=== PATIENT | female | born 1930 | race Caucasian/White ===

== ENCOUNTER 2018-05-07 16:08 | Inpatient (IN) | payer MEDICARE ==
[~2018-05-07] VITALS: Ht 170.2 cm; Wt 54.0 kg
--- NOTE | 2018-05-07 16:09 | NUR ---
PT BIBA BLS TO BED 6
[2018-05-07 16:12] VITALS: BP 134/89
[2018-05-07] MEDS ORDERED: NACL 0.9% 1,000 ML IV ONE (17:15)
[2018-05-07] MEDS ORDERED: KETOROLAC 30 MG/ML VIAL IVP ONE (17:15)
[2018-05-07 17:39] LABS: BASOPHILS % (AUTO) 0.3 % (0.0-2.0); EOSINOPHILS # (AUTO) 0.4 K/uL (0-0.4); EOSINOPHILS % (AUTO) 3.8 % (0.0-4.0); HEMATOCRIT 43.3 % (36-48); HEMOGLOBIN 13.8 g/dL (12.0-16.0); LYMPHOCYTES # (AUTO) 1.9 K/uL (2.5-16.5); LYMPHOCYTES % (AUTO) 17.9 % (20.5-51.1); MEAN CORPUSCULAR HEMOGLOBIN 28 pg (27-31); MEAN CORPUSCULAR HGB CONC 32 g/dL (33-37); MEAN CORPUSCULAR VOLUME 88.3 fL (80-94); MONOCYTES # (AUTO) 0.9 K/uL (0.8-1.0); MONOCYTES % (AUTO) 8.7 % (1.7-9.3); NEUTROPHILS # (AUTO) 7.2 K/uL (1.8-7.7); NEUTROPHILS % (AUTO) 69.3 % (42.2-75.2); PLATELET COUNT (AUTO) 377 K/uL (140-450); RED BLOOD CELL COUNT(AUTO) 4.91 MIL/uL (4.20-5.40); RED CELL DISTRIBUTION WIDTH 14.8 % (11.6-13.7); WHITE BLOOD COUNT (AUTO) 10.4 K/uL (4.8-10.8)
--- NOTE | 2018-05-07 17:50 | NUR ---
patient with no complaints. vss. nad. will continue to monitor.
[2018-05-07 18:03] LABS: ANION GAP 12.3 (8-16); CARBON DIOXIDE 31.4 mmol/L (21-32); CHLORIDE 100 mmol/L (98-107); CREATININE 0.9 mg/dL (0.6-1.3); GLUCOSE 112 mg/dL (74-106); POTASSIUM 3.7 mmol/L (3.5-5.1); SODIUM SERUM 140 mmol/L (136-145); UREA NITROGEN, BLOOD 25 mg/dL (7-18)
[2018-05-07 18:09] LABS: ALBUMIN 3.1 g/dL (3.4-5.0); ASPARTATE AMINOTRANSFERASE 20 U/L (15-37); TOTAL BILIRUBIN 0.5 mg/dL (0.0-1.0)
[2018-05-07] MEDS ORDERED: ONDANSETRON 4 MG ODT PO ONE (18:30)
--- NOTE | 2018-05-07 18:30 | NUR ---
Iv saline lock removed upon entering room. IV catheter intact; bleeding controlled; dressing applied. patient denies any pain at this time; pt reports nausea; no vomitting noted; er md cortez notified; new order being ordered. will follow up.
[2018-05-07 19:03] LABS: APPEARANCE,URINE CLEAR (CLEAR); BILIRUBIN,URINE NEGATIVE (NEGATIVE); BLOOD, URINE NEGATIVE (NEGATIVE); COLOR,URINE YELLOW (YELLOW); LEUKOCYTE ESTERASE ,URINE NEGATIVE (NEGATIVE); NITRITE, URINE NEGATIVE (NEGATIVE); UGLUCOSE NEGATIVE (NEGATIVE)
--- NOTE | 2018-05-07 19:15 | NUR ---
PT SITTING UP IN BED, VITALS STABLE. COMFORT MEASURES OFFERED PT TOLERARTED WELL.
--- NOTE | 2018-05-07 19:20 | NUR ---
Pt report given to Alessandra MUIR. Transfer of care at this time.
[2018-05-07] MEDS ORDERED: HYDROcodone/APAP 7.5/325 MG 1 TAB PO PRN (20:45)
[2018-05-07] MEDS ORDERED: ACETAMINOPHEN 325 MG TAB PO PRN (20:45)
[2018-05-07] MEDS ORDERED: DOCUSATE SODIUM 100 MG GELCAP PO PRN (20:45)
--- NOTE | 2018-05-07 21:11 | NUR ---
X-Ray at bedside.
--- NOTE | 2018-05-07 21:20 | NUR ---
Patient will be admitted to care of DR. VIEYRA. Admited to MED SURG. Will go to room 121A. Belongings list completed. Report to MOY MUIR. VSS
--- NOTE | 2018-05-07 21:20 | NUR ---
Pt report given to MOY MUIR. Transfer of care at this time.VSS
[2018-05-07 21:22] LABS: CHOL/HDL RATIO 4.8 (1-4.5); FREE T4 (FREE THYROXINE) 1.15 ng/dL (0.76-1.46); MAGNESIUM 1.5 mg/dL (1.8-2.4); THYROID STIMULATING HORMONE 1.03 uIU/mL (0.34-3.74)
[2018-05-07 21:25] VITALS: BP 142/61
--- NOTE | 2018-05-07 21:25 | NUR ---
ADMITTED A 87F FROM ER.CAME BY BRENNA AYALA TO INTRACTABLE BACK PAIN S/P FALL AT HOME 11 DAYS AGO . AAO X4. PT IS MED SURG. BEDREST. WITH LACERATION ON THE RIGHT SHEEN, CONTUSION ON LT FOOT . HAS HL ON THE RT HAND #[id number]. PAIN AT THIS TIME SHE SAID IS TOLERABLE. PLAN OF CARE DISCUSSED AND VERBALIZED UNDERSTANDING. ORIENTED TO HOSPITAL ROUTINES. BED ON LOWEST POSITION. FREQUENT ROUNDS NEEDED. SIDE RAILS UP X2. CALL LIGHT PLACED WITHIN EASY REACH. BED ALARM ON . INSTRUCTED TO CALL IF NEED ASSIST ANCE. VERBALIZED UNDERSTANDING. WILL FOLLOW UP ADMIT ORDERS.
--- NOTE | 2018-05-07 22:40 | NUR ---
DR. NEGRO, RESIDENT CAME AND CHECKED ON PT. HE SAID TO DO CULTURE ON THE RT SHEEN LACERATION.
[2018-05-07] MEDS ORDERED: KETOROLAC 15 MG/ML VIAL IM PRN (23:50)
--- NOTE | 2018-05-07 23:55 | NUR ---
PT. FOR CT HEAD W/O CONTRAST. RN ENDOSCOPY CALLED EARLIER. PT SAID SHE DOESN'T WANT IT DONE. SHE TALKED TO DR. NEGRO AND TEST TO BE DONE TOMORROW.
--- NOTE | 2018-05-08 00:05 | NUR ---
PT WAS INSTRUCTED ABOUT NPO AFTER MN FOR PLACEMENT OF TUNNELED HD PERMACATH LANDEN. VERBALIZED UNDERSTANDING. Addendum: 05/08/18 at 0727 by Bina Harvey RN CANADE[facility] ABOVE NOTES
[2018-05-08] MEDS ORDERED: DEXAMETHASONE 4 MG/ML VIAL IVP ONE (00:10)
[2018-05-08] MEDS ORDERED: MAGNESIUM OXIDE 400 MG TAB PO ONE (00:15)
[2018-05-08] MEDS ORDERED: MECLIZINE 25 MG TAB PO PRN (00:15)
[2018-05-08] MEDS: NACL 0.9% 500 ML IV SCH ×2 (00:20→12:50)
[2018-05-08] MEDS: ACETAMINOPHEN EXTRA STRENGTH 500 MG TAB PO PRN ×3 (00:33→23:41)
[2018-05-08 00:58] VITALS: BP 139/56
--- NOTE | 2018-05-08 01:30 | NUR ---
DR. NEGRO SAID OK TO START ANCEF AT 0500 THIS AM.
--- NOTE | 2018-05-08 02:00 | NUR ---
PT IS ASLEEP. NO S/S OF ANY DISCOMFORT NOTED.WILL CONTINUE TO MONITOR.
[2018-05-08] MEDS ORDERED: ceFAZolin 1,000 MG VIAL ONE (04:14)
--- NOTE | 2018-05-08 04:33 | NUR ---
ANCEF IVPB STARTED . WILL MONITOR FOR ANY REACTION.
--- NOTE | 2018-05-08 06:30 | NUR ---
HEATING PAD APPLIED TO BACK ORDERED FOR PAIN .
[2018-05-08 06:50] LABS: BASOPHILS % (AUTO) 0.2 % (0.0-2.0); EOSINOPHILS % (AUTO) 0.4 % (0.0-4.0); HEMATOCRIT 40.6 % (36-48); HEMOGLOBIN 12.9 g/dL (12.0-16.0); LYMPHOCYTES % (AUTO) 9.4 % (20.5-51.1); MEAN CORPUSCULAR HEMOGLOBIN 28 pg (27-31); MEAN CORPUSCULAR HGB CONC 32 g/dL (33-37); MEAN CORPUSCULAR VOLUME 88.8 fL (80-94); MONOCYTES # (AUTO) 0.1 K/uL (0.8-1.0); MONOCYTES % (AUTO) 0.9 % (1.7-9.3); NEUTROPHILS # (AUTO) 9.3 K/uL (1.8-7.7); NEUTROPHILS % (AUTO) 89.1 % (42.2-75.2); PLATELET COUNT (AUTO) 360 K/uL (140-450); RED BLOOD CELL COUNT(AUTO) 4.57 MIL/uL (4.20-5.40); RED CELL DISTRIBUTION WIDTH 14.5 % (11.6-13.7); WHITE BLOOD COUNT (AUTO) 10.5 K/uL (4.8-10.8)
[2018-05-08 07:17] LABS: MAGNESIUM 2.1 mg/dL (1.8-2.4); PHOSPHORUS 3.3 mg/dL (2.5-4.9)
--- NOTE | 2018-05-08 07:20 | NUR ---
ENDORSED PT IN STABLE CONDITION TO AM NURSE
--- NOTE | 2018-05-08 07:21 | NUR ---
RECEIVED REPORT FROM NIGHT COORDINATOR NURSE. PT IN STABLE CONDITION. RESPIRATIONS EVEN AND UNLABORED. IV INTACT AND PATENT. REVIEWED PLAN OF CARE WITH PT, PT VERBALIZED UNDERSTANDING OF PLAN OF CARE. SAFETY MEASURES IN PLACE. CALL LIGHT AT BEDSIDE. WILL CONTINUE TO MONITOR.
[2018-05-08 07:23] LABS: ANION GAP 17.2 (8-16); CARBON DIOXIDE 26.1 mmol/L (21-32); CHLORIDE 103 mmol/L (98-107); GLUCOSE 157 mg/dL (74-106); POTASSIUM 4.3 mmol/L (3.5-5.1); SODIUM SERUM 142 mmol/L (136-145); UREA NITROGEN, BLOOD 29 mg/dL (7-18)
--- NOTE | 2018-05-08 08:29 | NUR ---
PATIENT HAS BEEN SCREENED AND CATEGORIZED HIGH NUTRITION RISK. PATIENT WILL BE SEEN WITHIN 1-2 DAYS OF ADMISSION. 05/08/18-05/09/[address]
[2018-05-08] MEDS: CALCIUM CARB/VIT-D 500 MG/200 IU 1 TAB PO SCH (09:21)
[2018-05-08] MEDS: MAGNESIUM OXIDE 400 MG TAB PO SCH (09:21)
[2018-05-08] MEDS: SODIUM PHOS / POTASSIUM PHOS 1 PKT PDR PO SCH ×3 (09:22→17:08)
--- NOTE | 2018-05-08 11:30 | NUR ---
WOUND CARE EVALUATION NOTE: REASON FOR EVALUATION: RLE WOUND SKIN ASSESSMENT DONE WITH THIS 87Y/O FEMALE PT ADMITTED TO [facility] WITH INITIAL DX SYNCOPE AND S/P FALL. SKIN IS WARM AND DRY, BLE NO HAIR GROWTH, +1 EDEMA TO RIGHT LOWER LEG. BILATERAL DORSAL PEDAL PULSES PRESENT AND NORMAL. CAPILLARY REFILLED < 2 SEC. X 10 TOES. PLAN OF CARE DISCUSSED WITH PRIMARY RN AND PT. PT. VERBALIZING UNDERSTANDING. INTEGUMENTARY: -LLE DRY SKIN WITH DARK PIGMENTATION, MEDIAL MOON-ANKLE DRY SCABS -RLE LACERATION WITH ERYTHEMA AND +1 EDEMA, OPEN WOUND WITH PARTIAL THICKNESS SKIN LOSS 0.5X5X O.1CM WOUND BED IS MOIST AND RED, NO ODOR, OPEN WOUND AREA CONNECT TO SKIN TEAR WITH SKIN FLAP TO WOUND BED, 5X6 CM MOON-WOUND SKIN INTACT RECOMMENDATIONS: -CLEANSE RLE OPEN WOUNDS WITH NS. PAT DRY , APPLY VERSALTEL DRESSING (TO SKIN FLAPPED AREA)AND SILVASORB GEL(TO OPEN WOUND AREA) AND COVER WITH DRY DRESSING CHANGE QD AND PRN IF SOILING, PLEASE DO NOT REMOVE VERSATEL DRESSING. -OFFLOAD BILATERAL HEELS BY PLACING PILLOWS UNDER CALVES UNLESS OTHERWISE CONTRAINDICATED -PRESSURE REDISTRIBUTION SURFACE THERAPY -TURN AND REPOSITION Q2H, OFFLOAD SACRALCOCCYX BY TURNING RIGHT AND LEFT -CONTINUE TO FOLLOW RD RECOMMENDATIONS ALL ABOVE RECOMMENDATIONS DISCUSSED WITH PRIMARY RN AND DR. UMANZOR. WILL FOLLOW UP PT Q7-10 DAYS. PLEASE CONTACT WOUND CARE NURSE FOR ANY QUESTION AND CHANGE OF WOUND CONDITION.
--- NOTE | 2018-05-08 12:00 | NUR ---
PT REFUSED TO GO WITH RADIOLOGY FOR HEAD CT W/O CONTRAST. PT STATED THAT SHE DOES NOT WANT TO BE TRANSFERRED TO THE CT BED DUE TO BACK FX, AND SHE NEVER HIT HER HEAD WHEN SHE FELL SO SHE DOES NOT FEEL SHE NEEDS A CT.
--- NOTE | 2018-05-08 12:15 | NUR ---
05/08/18 RD INITIAL ASSESSMENT COMPLETED PLEASE REFER TO NUTRITION ASSESSMENT UNDER CARE ACTIVITY FOR ESTIMATED NUTRITIONAL NEEDS. 1. CONTINUE REGULAR DIET TOLERATED 2. RECOMMEND ENSURE VANILLA TID 3. RD TO FOLLOW-UP 3-5 DAYS, MODERATE RISK GAUTAM KILLIAN, RD
[2018-05-08] MEDS ORDERED: HYDR-3320 PO (13:16)
[2018-05-08] MEDS ORDERED: SYN.1 PO (13:16)
[2018-05-08] MEDS ORDERED: CARV6.25 PO (13:16)
[2018-05-08] MEDS: NACL 0.9% IRR 250 ML BOTTLE IR SCH (13:20)
--- NOTE | 2018-05-08 13:20 | NUR ---
WOUND CARE COMPLETED BY WOUND CARE NURSE AT 1100. SEE WOUND ASSESSMENT IN CHART.
[2018-05-08] MEDS ORDERED: CARVEDILOL 6.25 MG TAB PO SCH (13:30)
[2018-05-08] MEDS ORDERED: LEVOTHYROXINE 0.1 MG TAB PO SCH (13:30)
[2018-05-08] MEDS ORDERED: KETOROLAC 15 MG/ML VIAL IM PRN (14:45)
[2018-05-08 16:00] VITALS: BP 122/52
--- NOTE | 2018-05-08 17:00 | NUR ---
GAVE ORDERED DUE MEDICATIONS AND PRN ZOFRAN DUE TO NAUSEA, PT TOLERATED WELL. WILL CONTINUE TO MONITOR.
[2018-05-08] MEDS ORDERED: CEPHALEXIN 500 MG CAP PO SCH (18:00)
[2018-05-08] MEDS: ONDANSETRON 4 MG/2 ML VIAL IM/IVP PRN (18:02)
--- NOTE | 2018-05-08 19:30 | NUR ---
GAVE REPORT TO ELECTRICIAN SECOND NURSE FOR CONTINUITY OF CARE. PT IN STABLE CONDITION.
--- NOTE | 2018-05-08 19:31 | NUR ---
RECEIVED REPORT FROM AM SHIFT NURSE. PT IN STABLE CONDITION. RESPIRATIONS EVEN AND UNLABORED. IV INTACT AND PATENT. REVIEWED PLAN OF CARE WITH PT, PT VERBALIZED UNDERSTANDING OF PLAN OF CARE. SAFETY MEASURES IN PLACE. CALL LIGHT AT BEDSIDE. WILL CONTINUE TO MONITOR.
--- NOTE | 2018-05-08 19:48 | NUR ---
GAVE ORDERED DUE MEDICATIONS, PT TOLERATED WELL. WILL CONTINUE TO MONITOR.
[2018-05-08] MEDS: CEPHALEXIN 500 MG CAP PO SCH (20:42)
[2018-05-08] MEDS: CARVEDILOL 6.25 MG TAB PO SCH (20:42)
--- NOTE | 2018-05-08 21:00 | NUR ---
GAVE MEDS ABLE TO TOLERATE SWALLOWING ORAL PILLS. PT IN STABLE CONDITION.
[2018-05-09] VITALS: BP 115/43
--- NOTE | 2018-05-09 07:30 | NUR ---
ENDORSED BEDSIDE REPORT TO AM SHIFT NURSE. STABLE AT THIS TIME
--- NOTE | 2018-05-09 07:31 | NUR ---
Received bedside report from pm nurse Lainey. Pt awake, verbally responsive, no c/o discomfort. Call light within reach.
[2018-05-09 08:00] VITALS: BP 131/53
[2018-05-09 08:20] LABS: T4 (THYROXINE) 6.7 ug/dL (4.5-12.0)
[2018-05-09] MEDS ORDERED: NON-FORMULARY ITEM (Losartan/Hydrochlorothiazide (Losartan-Hctz 100-25 mg Tab) 1 TAB) PO SCH (09:00)
[2018-05-09] MEDS: SODIUM PHOS / POTASSIUM PHOS 1 PKT PDR PO SCH ×3 (09:07→17:30)
[2018-05-09] MEDS: CEPHALEXIN 500 MG CAP PO SCH ×2 (09:07→20:37)
[2018-05-09] MEDS: LEVOTHYROXINE 0.1 MG TAB PO SCH (09:07)
[2018-05-09] MEDS: LOSARTAN 50 MG TAB PO SCH (09:08)
[2018-05-09] MEDS: CARVEDILOL 6.25 MG TAB PO SCH ×2 (09:08→20:37)
[2018-05-09] MEDS: MAGNESIUM OXIDE 400 MG TAB PO SCH (09:08)
[2018-05-09] MEDS: CALCIUM CARB/VIT-D 500 MG/200 IU 1 TAB PO SCH (09:08)
[2018-05-09] MEDS: HYDROCHLOROTHIAZIDE 25 MG TAB PO SCH (09:09)
[2018-05-09 09:39] LABS: BARBITURATE, URINE NEG. ng/ml (NEG <=200); BENZODIAZEPINE, URINE NEG. ng/mL (NEG <=200); CANNABINOID, URINE NEG. ng/mL (NEG <=50); COCAINE, URINE NEG. ng/mL (NEG <=300); OPIATE, URINE NEG. ng/mL (NEG <=2000); PHENCYCLIDINE SCREEN,URINE NEG. ng/mL (NEG <=25)
--- NOTE | 2018-05-09 11:15 | NUR ---
Pt in high fowlers in bed, awake, verbally responsive, no c/o discomfort at this time. Pt states she only has pain when she is being moved. Offered pain med prior to ADL care. Pt refused & states she doesn't like taking too much meds. Encouraged to call for assistance as needed. Verbalized understanding. Able to return demonstrate proper use of call button. Call light within reach.
[2018-05-09] MEDS: NACL 0.9% IRR 250 ML BOTTLE IR SCH (13:00)
--- NOTE | 2018-05-09 13:00 | NUR ---
Pt voided in pad. Pericare provided. Noted perianal area redness, no open lesions. No c/o discomfort. Dr Ortiz notified.
--- NOTE | 2018-05-09 14:00 | NUR ---
Physical therapist at bedside providing treatment. Pt cooperative, no signs of distress.
[2018-05-09 16:00] VITALS: BP 114/53
--- NOTE | 2018-05-09 19:30 | NUR ---
Bedside report given to pm nurse Alanna.
--- NOTE | 2018-05-09 19:31 | NUR ---
RECD. RESTING IN BED, AWAKE, A/OX4. RESPIRATION EVEN AND UNLABORED. NO IV LINE, REFUSED TO HAVE ONE INSERTED. WITH K-PAD BEHIND BACK. WITH ABDOMINAL BINDER FOR SUPPORT. NOTED DISCOLORATION ON LEFT LOWER EXTREMITY, RIGHT PATTON WITH LACERATION DUE TO FALL, COVERED WITH VERSATEL DRESSING, DRY AND INTACT. DENIES PAIN 0/10, STATED PAIN COMES ONLY WHEN SHE MOVES. PLAN OF CARE FOR THE SHIFT DISCUSSED. VERBALIZED UNDERSTANDING.
[2018-05-09] MEDS: Z-GUARD PASTE TP SCH (20:37)
--- NOTE | 2018-05-09 21:00 | NUR ---
Patient's Plan of Care was discussed and reviewed with TREATMENT COORDINATOR: WALTER ALLEN
--- NOTE | 2018-05-09 21:00 | NUR ---
INFORMED DR. CORREIA, PATIENT WANT TO HAVE ENEMA, NO BM FOR 3 DAYS. WILL ORDER PO MEDICATION AND IF IT IS NOT EFFECTIVE WILL ORDER FLEE ENEMA.
--- NOTE | 2018-05-09 23:00 | NUR ---
SLEEPING COMFORTABLY IN BED.
[2018-05-10] VITALS: BP 120/57
[2018-05-10] MEDS ORDERED: BISACODYL 5 MG TABEC PO SCH (01:00)
--- NOTE | 2018-05-10 01:10 | NUR ---
MEDICATED WITH DULCOLAX 5 MG, 2 TABS ORDERED FOR CONSTIPATION.
--- NOTE | 2018-05-10 06:30 | NUR ---
SLEEPING COMFORTABLY IN BED. NO BM FOR THE SHIFT.
--- NOTE | 2018-05-10 07:25 | NUR ---
CONDITION REMAIN STABLE. ENDORSED TO AM NURSES TO GIVE FLEET ENEMA IF STILL NO BM AND FOR CONTINUITY OF CARE.
[2018-05-10 07:45] LABS: BASOPHILS % (AUTO) 0.3 % (0.0-2.0); EOSINOPHILS # (AUTO) 0.4 K/uL (0-0.4); HEMATOCRIT 38.3 % (36-48); HEMOGLOBIN 12.3 g/dL (12.0-16.0); LYMPHOCYTES # (AUTO) 1.9 K/uL (2.5-16.5); LYMPHOCYTES % (AUTO) 20.4 % (20.5-51.1); MEAN CORPUSCULAR HEMOGLOBIN 28 pg (27-31); MEAN CORPUSCULAR HGB CONC 32 g/dL (33-37); MEAN CORPUSCULAR VOLUME 88.2 fL (80-94); MONOCYTES % (AUTO) 10.6 % (1.7-9.3); NEUTROPHILS # (AUTO) 6.1 K/uL (1.8-7.7); NEUTROPHILS % (AUTO) 64.7 % (42.2-75.2); PLATELET COUNT (AUTO) 383 K/uL (140-450); RED BLOOD CELL COUNT(AUTO) 4.34 MIL/uL (4.20-5.40); RED CELL DISTRIBUTION WIDTH 14.3 % (11.6-13.7); WHITE BLOOD COUNT (AUTO) 9.4 K/uL (4.8-10.8)
[2018-05-10 08:00] VITALS: BP 120/70
[2018-05-10 08:31] LABS: ANION GAP 11.2 (8-16); CARBON DIOXIDE 30.8 mmol/L (21-32); CHLORIDE 104 mmol/L (98-107); CREATININE 0.7 mg/dL (0.6-1.3); GLUCOSE 105 mg/dL (74-106); SODIUM SERUM 142 mmol/L (136-145); UREA NITROGEN, BLOOD 20 mg/dL (7-18)
[2018-05-10 08:35] LABS: PHOSPHORUS 2.8 mg/dL (2.5-4.9)
[2018-05-10] MEDS: ONDANSETRON 4 MG/2 ML VIAL IM/IVP PRN (09:08)
[2018-05-10] MEDS: CALCIUM CARB/VIT-D 500 MG/200 IU 1 TAB PO SCH (09:10)
[2018-05-10] MEDS: LEVOTHYROXINE 0.1 MG TAB PO SCH (09:10)
[2018-05-10] MEDS: LOSARTAN 50 MG TAB PO SCH (09:11)
[2018-05-10] MEDS: CARVEDILOL 6.25 MG TAB PO SCH ×2 (09:11→20:51)
[2018-05-10] MEDS: MAGNESIUM OXIDE 400 MG TAB PO SCH (09:11)
[2018-05-10] MEDS: SODIUM PHOS / POTASSIUM PHOS 1 PKT PDR PO SCH ×3 (09:12→17:12)
[2018-05-10] MEDS: HYDROCHLOROTHIAZIDE 25 MG TAB PO SCH (09:12)
--- NOTE | 2018-05-10 09:15 | NUR ---
ADMINISTERED SCHEDULED MEDS. PATIENT TOLERATED WELL. WILL CONTINUE TO MONITOR.
[2018-05-10] MEDS ORDERED: ONDANSETRON 4 MG ODT SL PRN (09:20)
[2018-05-10] MEDS: CEPHALEXIN 500 MG CAP PO SCH ×2 (09:26→20:51)
[2018-05-10] MEDS: Z-GUARD PASTE TP SCH ×2 (09:29→20:52)
[2018-05-10] MEDS ORDERED: DEXAMETHASONE 4 MG TAB PO SCH (12:45)
[2018-05-10] MEDS: NACL 0.9% IRR 250 ML BOTTLE IR SCH (13:00)
--- NOTE | 2018-05-10 13:31 | NUR ---
ADMINISTERED SCHEDULED MEDS TO PATIENT. PATIENT TOLERATED WELL. WILL CONTINUE TO MONITOR.
[2018-05-10] MEDS: SODIUM PHOSPHATE 118 ML ENEM RC PRN (14:46)
--- NOTE | 2018-05-10 15:00 | NUR ---
Assisted pt from bed to chair via 2-person moderate assist. Pt c/o min pain during transfer, refused pain meds when offered. States pain is tolerable at this time. No c/o pain in sitting position. Son at bedside visiting pt. Call light placed within reach.
--- NOTE | 2018-05-10 15:40 | NUR ---
Pt states she feels like having a BM. Transferred pt from chair to bedside commode via 2-person moderate assist. Call light within reach. Fall precautions in place.
[2018-05-10 16:00] VITALS: BP 117/56
--- NOTE | 2018-05-10 16:00 | NUR ---
Pt voided min amount in bedside commode. No BM. Pt assisted back to bed via 2-person mod assist. No c/o discomfort. Call light within reach.
--- NOTE | 2018-05-10 19:28 | NUR ---
GAVE BEDSIDE REPORT TO FIELD SUPERVISOR SEED PRODUCTION NURSE. PATIENT ENDORSED IN STABLE CONDITION.
--- NOTE | 2018-05-10 19:30 | NUR ---
RECEIVED REPORT FROM DAY SHIFT NURSE. PT LYING IN BED. AAOX4. NO C/O PAIN AT THIS TIME. NO RESP DISTRESS NOTED. PT HAS DRESSING TO RIGHT PATTON, CLEAN, DRY AND INTACT. PT HAS LEFT ANKLE HEMATOMA. DISCUSSED PLAN OF CARE, PT VERBALIZED UNDERSTANDING. SAFETY PRECAUTION IN PLACE. CALL LIGHT WITHIN REACH.
--- NOTE | 2018-05-10 21:15 | NUR ---
DUE MEDS GIVEN. PT TOLERATED WELL. PT KEPT DRY AND COMFORTABLE. SAFETY PRECAUTION IN PLACE.
[2018-05-10] MEDS: ACETAMINOPHEN EXTRA STRENGTH 500 MG TAB PO PRN (23:25)
--- NOTE | 2018-05-10 23:25 | NUR ---
PT C/O BACK PAIN AND ASKED FOR TYLENOL. TYLENOL 1000 MG GIVEN. PT TOLERATED WELL.
[2018-05-11] VITALS: BP 113/56
--- NOTE | 2018-05-11 01:50 | NUR ---
PT SLEEPING. JOLYNN S/S OF PAIN OR SOB. RESP EVEN AND UNLABORED.
--- NOTE | 2018-05-11 04:30 | NUR ---
PT SLEEPING. NO S/S OF PAIN. PT KEPT WARM AND COMFORTABLE.
--- NOTE | 2018-05-11 05:35 | NUR ---
PT HAD SMALL SOFT BM X 2. PT WAS CLEANED AND CHANGED BY CNAS.
[2018-05-11] MEDS: METOCLOPRAMIDE 10 MG TAB PO SCH ×2 (06:32→12:06)
--- NOTE | 2018-05-11 07:05 | NUR ---
ENDORSED PT TO DAY SHIFT NURSE. PT IN STABLE CONDITION.
--- NOTE | 2018-05-11 07:10 | NUR ---
RECEIVED PT ROM PRICING STRATEGIST NURSE, ROSITA, PT IS AWAKE AND LYING ON THE BED WITH SIDE RAILS UP AND CALL LIGHT WITHIN REACH, PT HAS NO IV LINE IN PLACE, DENIES SOB AND PAIN. A RT PATTON SKIN TEAR WAS NOTED. NO SIGN OF DISTRESS NOTED AND WILL CONTINUE TO MONITOR PT.
[2018-05-11 08:00] VITALS: BP 129/78
[2018-05-11 08:14] LABS: BASOPHILS % (AUTO) 0.1 % (0.0-2.0); EOSINOPHILS % (AUTO) 0.1 % (0.0-4.0); HEMATOCRIT 41.2 % (36-48); HEMOGLOBIN 13.2 g/dL (12.0-16.0); LYMPHOCYTES # (AUTO) 1.6 K/uL (2.5-16.5); LYMPHOCYTES % (AUTO) 15.3 % (20.5-51.1); MEAN CORPUSCULAR HEMOGLOBIN 28 pg (27-31); MEAN CORPUSCULAR HGB CONC 32 g/dL (33-37); MEAN CORPUSCULAR VOLUME 88.1 fL (80-94); MONOCYTES # (AUTO) 0.7 K/uL (0.8-1.0); MONOCYTES % (AUTO) 7.2 % (1.7-9.3); NEUTROPHILS # (AUTO) 7.8 K/uL (1.8-7.7); NEUTROPHILS % (AUTO) 77.3 % (42.2-75.2); PLATELET COUNT (AUTO) 429 K/uL (140-450); RED BLOOD CELL COUNT(AUTO) 4.67 MIL/uL (4.20-5.40); RED CELL DISTRIBUTION WIDTH 14.6 % (11.6-13.7); WHITE BLOOD COUNT (AUTO) 10.1 K/uL (4.8-10.8)
[2018-05-11] MEDS: CEPHALEXIN 500 MG CAP PO SCH (08:37)
[2018-05-11] MEDS: MAGNESIUM OXIDE 400 MG TAB PO SCH (08:38)
[2018-05-11] MEDS: CARVEDILOL 6.25 MG TAB PO SCH (08:38)
[2018-05-11] MEDS: CALCIUM CARB/VIT-D 500 MG/200 IU 1 TAB PO SCH (08:38)
[2018-05-11] MEDS: SODIUM PHOS / POTASSIUM PHOS 1 PKT PDR PO SCH ×2 (08:38→13:14)
[2018-05-11] MEDS: HYDROCHLOROTHIAZIDE 25 MG TAB PO SCH (08:39)
[2018-05-11] MEDS: LEVOTHYROXINE 0.1 MG TAB PO SCH (08:39)
[2018-05-11] MEDS: LOSARTAN 50 MG TAB PO SCH (08:39)
[2018-05-11] MEDS: Z-GUARD PASTE TP SCH (08:43)
--- NOTE | 2018-05-11 08:51 | NUR ---
PT IS AWAKE AND SEATED ON THE BED, JUST FINISHED BREAKFAST, V/S TAKEN AND BP IS WITHIN NORMAL LIMIT, ORAL MEDICATIONS GIVEN WITH ASPIRATION PRECAUTION INITIATED, PT DENIES PAIN AND TOLERATED THE ORAL MEDICATIONS, NO SIGN OF DISTRESS NOTED AND WILL CONTINUE TO MONITOR PT.
[2018-05-11 09:03] LABS: ANION GAP 12.7 (8-16); CHLORIDE 101 mmol/L (98-107); CREATININE 0.8 mg/dL (0.6-1.3); GLUCOSE 121 mg/dL (74-106); POTASSIUM 4.7 mmol/L (3.5-5.1); SODIUM SERUM 139 mmol/L (136-145); UREA NITROGEN, BLOOD 27 mg/dL (7-18)
--- NOTE | 2018-05-11 09:30 | NUR ---
P.T. NOTES PATIENT REFUSED TO GET OUT OF BED TODAY AFTER SEVERAL ATTEMPTS AND ENCOURAGEMENTS WERE GIVEN DUE TO HAVING DIARRHEA AND HER RN JACKIE WAS AWARE. PLAN: WE'LL FOLLOW UP AGAIN ON NEXT P.T. VISIT IF SHE REMAINS IN THIS HOSP.
[2018-05-11] MEDS: SODIUM PHOSPHATE 118 ML ENEM RC PRN (10:23)
--- NOTE | 2018-05-11 11:01 | NUR ---
RECEIVED ORDER FOR SNF FOR PT. CONTACTED [facility] AT [facility] AND FAXED INQUIRY.
--- NOTE | 2018-05-11 12:07 | NUR ---
PT IS AWAKE AND LYING ON THE BED, REGLAN GIVEN AND PT TOLERATED IT, PT DENIES PAIN, PT WAS CLEANED UP AND REPOSITIONED. WILL CONTINUE TO MONITOR PT.
--- NOTE | 2018-05-11 12:35 | NUR ---
RECEIVED A CALL FROM SLY FROM [employer]. THEY CAN TAKE THE PATIENT. ROOM [address] UNDER DR. JACOBSON. PHONE [phone]. [place] [facility] [place] THE AUTH FOR [employer] [place] [id number] AUTH FOR [facility] IS [id number].\ CALLED [facility] AT [phone] AND SET UP TRANSPORT FOR 2:30P.M. I CALLED CATHLEEN MUIRREFUELER NURSE AND INFORMED HER.
[2018-05-11] MEDS: NACL 0.9% IRR 250 ML BOTTLE IR SCH (13:04)
[2018-05-11] MEDS ORDERED: ATOR10TA PO (13:27)
[2018-05-11] MEDS ORDERED: METH4TAB1 PO (13:28)
--- NOTE | 2018-05-11 13:30 | NUR ---
CALLED THE PT'S SON, ILANA LUNSFORD AND INFORMED THAT PT WILL BE TRANSFERRED TO [facility] FOR A PT REHABILITATION, INFORMATION ON THE TRANSFER WAS GIVEN TO SON AND VERBALIZED UNDERSTANDING.
[2018-05-11] MEDS ORDERED: CEPH500C16 PO (13:45)
--- NOTE | 2018-05-11 13:50 | NUR ---
CALLED [facility] IN [place] AT [phone] AND GAVE REPORT TO ISADORA LEMUS, PT WILL BE PLACE IN RM [address]-A UNDER THE SERVICE OF DR. JACOBSON AND TRANSPORT WILL BE [place] AND PT WILL BE PICKED UP AT 1430, ISADORA LEMUS, ACKNOWLEDGED AND VERBALIZED UNDERSTANDING.
--- NOTE | 2018-05-11 14:35 | NUR ---
WOUND WAS ASSESSED AND CLEANED AND REINFORCED WITH VERSATEL DRESSING, PICTURE TAKEN AND WAS ATTACHED TO THE CHART.
--- NOTE | 2018-05-11 14:55 | NUR ---
DISCHARGED PT VIA [facility] PERSONNEL, DISCHARGE TEACHINGS AND INSTRUCTION GIVEN TO PT AND PT VERBALIZED UNDERSTANDING. ARM BAND REMOVED AND PT IS STABLE AT THIS TIME.
== END 2018-05-11 14:55 | DRG 551 ==
LOC: MED 16:08 → MTU 20:43
PROVIDERS: ADMIT General Practice; ATTEND General Practice
DX: S32.059A Unspecified fracture of fifth lumbar vertebra, initial encounter for closed fracture (principal); N17.0 Acute kidney failure with tubular necrosis; J98.59 Other diseases of mediastinum, not elsewhere classified; R53.2 Functional quadriplegia; E44.0 Moderate protein-calorie malnutrition; Z68.1 Body mass index [BMI] 19.9 or less, adult; M51.36 Other intervertebral disc degeneration, lumbar region; E83.39 Other disorders of phosphorus metabolism; E83.42 Hypomagnesemia; M85.80 Other specified disorders of bone density and structure, unspecified site; I10 Essential (primary) hypertension; J44.9 Chronic obstructive pulmonary disease, unspecified; S93.402A Sprain of unspecified ligament of left ankle, initial encounter; I48.91 Unspecified atrial fibrillation; Z66 Do not resuscitate; G90.9 Disorder of the autonomic nervous system, unspecified; S90.01XA Contusion of right ankle, initial encounter; L89.512 Pressure ulcer of right ankle, stage 2; J84.10 Pulmonary fibrosis, unspecified; R42 Dizziness and giddiness; K56.41 Fecal impaction; I73.9 Peripheral vascular disease, unspecified; E78.2 Mixed hyperlipidemia; Z87.891 Personal history of nicotine dependence; Z86.73 Personal history of transient ischemic attack (TIA), and cerebral infarction without residual deficits
CPT/HCPCS: 36415; 71045; 72131; 73610; 80048; 80053; 80305; 81003; 82150; 83036; 83690; 83735; 83880; 84100; 84436; 84439; 84443; 84479; 84484; 85025; 85610; 85730; 87070; 87081; 93880; 93925; 93970; 96361; 96374; 97110; 97530; 99285; J0690; J1100; J1885; J2405; J7030; J7060; J8597; Q0092; Q0162